=== PATIENT | female | born 1965 | race Hispanic/Latino ===

== ENCOUNTER 2024-05-20 06:01 | Observation (INO) | payer MEDICARE ==
[2024-05-16 16:00] LABS: BASOPHILS # (AUTO) 0.03 K/uL (0.00-0.20); BASOPHILS % (AUTO) 0.3 % (0.0-5.0); EOSINOPHILS % (AUTO) 2.1 % (0.0-8.0); HEMATOCRIT 36.5 % (36-48); IMMATURE GRANULOCYTE ABSOLUTE 0.03 K/uL (0-1); LYMPHOCYTES # (AUTO) 2.7 K/uL (1.0-4.8); LYMPHOCYTES % (AUTO) 28.3 % (21.0-51.0); MEAN CORPUSCULAR HEMOGLOBIN 29.7 pg (27.0-33.0); MEAN CORPUSCULAR HGB CONC 31.8 g/dL (32.0-36.0); MEAN CORPUSCULAR VOLUME 93.4 fL (79-99); MONOCYTES # (AUTO) 0.7 K/uL (0.1-1.0); MONOCYTES % (AUTO) 6.9 % (3.0-13.0); NEUTROPHILS # (AUTO) 5.8 K/uL (1.8-7.7); NEUTROPHILS % (AUTO) 62.1 % (40.0-77.0); PLATELET COUNT (AUTO) 204 K/uL (130-400); RED BLOOD CELL COUNT(AUTO) 3.91 MIL/uL (4.00-5.50); RED CELL DISTRIBUTION WIDTH 13.2 % (11.0-15.5); WHITE BLOOD COUNT (AUTO) 9.4 K/uL (4.8-10.8)
[2024-05-16 16:02] VITALS: BP 139/93; PULSE 86; RESP 18
[2024-05-16 16:11] LABS: CREATININE 1.7 mg/dL (0.5-1.0); INR 1.03 (0.85-1.15); POTASSIUM 4.5 mmol/L (3.5-5.1); PROTHROMBIN TIME 11.1 SEC (9.6-11.6)
[2024-05-16 16:13] LABS: PARTIAL THROMBOPLASTIN TIME 27.9 SEC (26.3-35.5)
[2024-05-16 16:17] LABS: APPEARANCE,URINE CLEAR (CLEAR); BILIRUBIN,URINE NEGATIVE (NEGATIVE); COLOR,URINE LIGHT-YELLOW (YELLOW); GLUCOSE, URINE (UA) NEGATIVE (NEGATIVE); KETONES,URINE NEGATIVE (NEGATIVE); LEUKOCYTE ESTERASE ,URINE NEGATIVE Leu/uL (NEGATIVE); NITRATE,URINE NEGATIVE (NEGATIVE); OCCULT BLOOD,URINE NEGATIVE (NEGATIVE); PROTEIN,URINE NEGATIVE (NEGATIVE); UROBILINOGEN,URINE 0.2 mg/dL (0.2-1.0)
[2024-05-16 16:30] LABS: ADD UA MICROSCOPIC NO
[2024-05-20] VITALS (34 sets, daily range): BP systolic 117–178; BP diastolic 45–65; PULSE 66–99; RESP 13–24; O2SAT 95
[~2024-05-20] VITALS: Ht 167.6 cm; Wt 135.0 kg
[~2024-05-20 06:01] MED LIST: GLIP1TAB6 PO; INSU100V37 SQ; OLME40TA18 PO; SEMA2PEN SQ; SIMV10TA97 PO; TORS20TA4 PO
[2024-05-20] MEDS: CEFAZOLIN SODIUM 2 GM VIAL ONE (06:45)
[2024-05-20] MEDS: 0.9%NACL 1000ML 1,000 ML IV ONE (06:45)
[2024-05-20] MEDS: CEFAZOLIN SODIUM 1 GM VIAL ONE ×2 (06:46→08:30)
[2024-05-20] MEDS: FAMOTIDINE 20MG VIAL IV ONE (07:01)
[2024-05-20] MEDS: ACETAMINOPHEN 1,000 MG/100 ML VIAL IV ONE (07:01)
[2024-05-20] MEDS ORDERED: ROPIVACAINE 0.5% 5MG/ML 30ML ONE (07:03)
[2024-05-20] MEDS ORDERED: KETAMINE 50MG/ML SYRINGE 50 MG/ML DISP.SYRIN ONE (07:04)
[2024-05-20] MEDS ORDERED: LIDOCAINE PF 100MG/5ML (2%) SYRINGE 5ML ONE (07:09)
[2024-05-20] MEDS ORDERED: PROPOFOL 10 MG/ML 20ML VIAL IV ONE (07:10)
[2024-05-20] MEDS ORDERED: ROCURONIUM BROMIDE 10MG/1ML 5ML VL ONE ×2 (07:10→08:49)
[2024-05-20] MEDS ORDERED: FENTANYL CITRATE PF 50 MCG/1 ML 2ML VIAL ONE (07:10)
[2024-05-20] MEDS ORDERED: CEFAZOLIN SODIUM 1 GM VIAL ONE (07:37)
[2024-05-20] MEDS ORDERED: VANCOMYCIN 1G/250ML KIT 250 ML IV ONE (07:38)
[2024-05-20] MEDS ORDERED: MORPHINE PF 100MG/10ML AMP IV ONE ×2 (07:38→07:52)
[2024-05-20] MEDS ORDERED: VANCOMYCIN 1G/250ML KIT 500 ML IV ONE (07:53)
[2024-05-20] MEDS ORDERED: ONDANSETRON 4MG INJ ONE (08:24)
[2024-05-20] MEDS ORDERED: DEXAMETHASONE SOD PHOSPHATE 10MG/ML 1ML VIAL ONE (08:24)
[2024-05-20] MEDS: TRANEXAMIC ACID 1000MG/10ML ONE ×2 (08:25→11:19)
[2024-05-20] MEDS ORDERED: PHENYLEPHRINE HCL 10 MG/ML 1ML VIAL IV ONE (08:41)
[2024-05-20] MEDS ORDERED: NEOSTIGMINE METHYLSULFATE 1MG/ML IV ONE (08:41)
[2024-05-20] MEDS ORDERED: GLYCOPYRROLATE 0.2 MG/ML 5 ML VIAL ONE (08:41)
[2024-05-20] MEDS: VANCOMYCIN 1G/250ML KIT 250 ML IV ONE (09:00)
[2024-05-20] MEDS: MORPHINE PF 100MG/10ML AMP IV ONE (09:00)
[2024-05-20] MEDS ORDERED: FERROUS FUMARATE 324 MG TABLET PO PRN (11:00)
[2024-05-20] MEDS ORDERED: KETOROLAC 15MG/ML VIAL (15MG/ML) IV PRN (11:00)
[2024-05-20] MEDS ORDERED: POTASSIUM CHLORIDE 20MEQ/100ML 100 ML IV PRN (11:00)
[2024-05-20] MEDS: ACETAMINOPHEN 500 MG TABLET PO SCH (11:00)
[2024-05-20] MEDS ORDERED: TRAMADOL HCL 50 MG TABLET PO PRN (11:00)
[2024-05-20] MEDS ORDERED: DiphenhydrAMINE HCL 50 MG/ML VIAL IVP PRN (11:00)
[2024-05-20] MEDS: 0.9%NACL 1000ML 1,000 ML IV SCH (11:00)
[2024-05-20] MEDS ORDERED: KCL 20 MEQ ERTAB PO PRN (11:00)
[2024-05-20] MEDS ORDERED: CALCIUM CARB 500MG PO PRN (11:00)
[2024-05-20] MEDS ORDERED: POTASSIUM CHLORIDE 10% ELIXIR 20 MEQ/15 ML UDCUP PO PRN (11:00)
[2024-05-20] MEDS: INSULIN HUMULIN R 100 UNIT/ML 3ML SQ SCH (11:30)
[2024-05-20] MEDS: ONDANSETRON 4MG INJ ONE (12:03)
[2024-05-20] MEDS: MEPERIDINE-PF 25 MG/ML SYG ONE ×2 (12:04→12:05)
[2024-05-20] MEDS: PROMETHAZINE HCL 25 MG/ML 1ML AMPULE IM ONE (12:06)
[2024-05-20] MEDS: SCOPOLAMINE HYDROBROMIDE 1 EACH ADH..PATCH TD ONE (12:06)
[2024-05-20] MEDS ORDERED: HYDR25TA PO (12:12)
[2024-05-20] MEDS: TRAMADOL HCL 50 MG TABLET ONE (13:59)
[2024-05-20] MEDS: CEFAZOLIN SODIUM 3 GM in DEXTROSE 5%-WATER 100 ML IVPB SCH (14:00)
[2024-05-20 14:15] LABS: BODY FLUID RBC 418584 /cu. mm.; BODY FLUID WBC 860 /cu. mm.
[2024-05-20 14:41] LABS: BF EOSINOPHIL 2 %; BF LYMPHOCYTE 37 %; BF MESOTHELIAL 12 %; BF MONOCYTE 7 %; BF TOTAL CELLS COUNTED 100
[2024-05-20 14:45] LABS: APPEARANCE BODY FLUID TURBID (CLEAR); COLOR,BODY FLUID RED (LT YELLOW); SPECIMENTYPE,BODY FLUID SYNOVIAL; TOTAL VOLUME,BODY FLUID 2 mL
[2024-05-20] MEDS: OXYCODONE HCL 10 MG TAB.SR.12H PO ONE (15:35)
[2024-05-20] MEDS: ACETAMINOPHEN 500 MG TABLET ONE (15:37)
[2024-05-20] MEDS: CELECOXIB 200 MG CAP PO SCH (20:51)
[2024-05-20] MEDS: ASPIRIN 81 MG EC TAB PO SCH (20:51)
[2024-05-20] MEDS: SIMVASTATIN 10 MG TABLET PO SCH (20:52)
[2024-05-20] MEDS: FAMOTIDINE 20MG TAB PO SCH (20:52)
[2024-05-20] MEDS: TORSEMIDE 20 MG TAB PO SCH (20:52)
[2024-05-20] MEDS: HYDROCHLOROTHIAZIDE 25 MG TABLET PO SCH (20:53)
[2024-05-20] MEDS: GLIPIZIDE PO SCH (21:00)
[2024-05-20] MEDS: METFORMIN HCL PO SCH (21:00)
[2024-05-20] MEDS: INSULIN GLARGINE 100 UNITS/ML 10 ML VIAL SQ SCH (22:31)
[2024-05-20] MEDS ORDERED: COMPOUND IV REFRIGERATED 1 EACH IVSOLN MISC PRN (23:30)
[2024-05-20] MEDS: OXYCODONE HCL 5 MG TAB PO PRN (23:34)
[2024-05-21 04:17] VITALS: BP 136/58; PULSE 86; RESP 20
[2024-05-21 05:13] LABS: HEMATOCRIT 32.4 % (36-48); MEAN CORPUSCULAR HGB CONC 30.9 g/dL (32.0-36.0); MEAN CORPUSCULAR VOLUME 97.3 fL (79-99); PLATELET COUNT (AUTO) 154 K/uL (130-400); RED BLOOD CELL COUNT(AUTO) 3.33 MIL/uL (4.00-5.50); RED CELL DISTRIBUTION WIDTH 12.7 % (11.0-15.5); WHITE BLOOD COUNT (AUTO) 11.7 K/uL (4.8-10.8)
[2024-05-21 05:44] LABS: CREATININE 1.9 mg/dL (0.5-1.0); POTASSIUM 5.1 mmol/L (3.5-5.1)
[2024-05-21 08:00] VITALS: BP 124/73; PULSE 88; RESP 19
[2024-05-21] MEDS: POLYETHYLENE GLYCOL 3350 17 GM POWD.PACK PO SCH (08:33)
[2024-05-21] MEDS: LOSARTAN 100 MG TABLET PO SCH (08:36)
[2024-05-21] MEDS: OXYCODONE HCL 5 MG TAB PO PRN (08:41)
[2024-05-21 12:00] VITALS: BP 107/42; PULSE 86; RESP 18
[2024-05-21 12:02] VITALS: O2SAT 97
[2024-05-21 16:00] VITALS: BP 123/57; PULSE 82; RESP 19
[2024-05-21 20:00] VITALS: BP 111/46; PULSE 87; RESP 21
[2024-05-22] VITALS: BP 126/57; PULSE 79; RESP 20
[2024-05-22 04:00] VITALS: BP 132/57; PULSE 82; RESP 20
[2024-05-22 07:10] VITALS: BP 134/43; PULSE 94; RESP 20
[2024-05-22] MEDS: ONDANSETRON 4MG INJ IVP PRN (08:48)
[2024-05-22 11:05] VITALS: BP_SYST 122; BP_SYST 148; BP_DIAS 54; BP_DIAS 63; PULSE 64; PULSE 95; RESP 18; RESP 20
[2024-05-22 11:07] VITALS: O2SAT 99
[2024-05-22] MEDS ORDERED: OXYC-38 PO ×2 (11:12→15:23)
[2024-05-22] MEDS ORDERED: AEC81 PO (11:12)
[2024-05-22 12:38] VITALS: TEMP 98.1
[2024-05-23] MEDS ORDERED: BISACODYL 10 MG SUPP.RECT RC PRN (11:00)
== END 2024-05-22 16:39 | disposition home or self-care (01) ==
LOC: DAH 06:01 → DAHIP 06:02 → DAH 06:02 → 4AH 16:35
PROVIDERS: ADMIT Orthopaedic Surgery; ATTEND Orthopaedic Surgery
DX: M17.11 Unilateral primary osteoarthritis, right knee (principal); G89.18 Other acute postprocedural pain; M23.8X1 Other internal derangements of right knee; K21.9 Gastro-esophageal reflux disease without esophagitis; E11.9 Type 2 diabetes mellitus without complications; I10 Essential (primary) hypertension; E78.00 Pure hypercholesterolemia, unspecified; Z79.899 Other long term (current) drug therapy; Z86.2 Personal history of diseases of the blood and blood-forming organs and certain disorders involving the immune mechanism
CPT/HCPCS: 80048 ×2; 85025; 85610; 85730; 87086; 81003; 36415 ×2; 87641; 64447; 27447; 96365; 89051; 87071; 87076; 87205; 82948 ×12; 88311; 88305; 97161; 97116 ×4; 97530 ×6; 85027; 96375; J1815; G0378 ×44; A4663; J3490 ×7; J3010; J0690 ×5; J1100; J7030; J2550; J2001; J7060; J2704; J2274 ×3; J2405 ×3; J2710; J3370 ×3; J2175 ×2; J2795; J2371; A9272; A4649 ×3; A4930 ×2; C1763; C1776; A5120; A4215; A4223; A4222; A4221